=== PATIENT | male | born 1990 | race Caucasian/White ===

== ENCOUNTER 2021-02-23 16:42 | Day surgery (SDCO) | payer OTHER ==
[~2021-02-23 16:42] MED LIST: CEFDINIR300 MG PO; DIFLUCAN 100MG100 MG PO; DITROPAN5 MG PO; GLUCOPHAGE850 MG PO; LIPITOR 10MG TA10 MG PO; METFORMIN HCL500 MG PO; SINGULAIR10 MG PO; VENTOLIN HFA18 GM INH; XYZAL5 MG PO
[2021-02-23 17:59] LABS: BASOPHIL 0.5 % (0-2); EOSINOPHIL 0.6 % (0-5); HCT 49.4 % (42.0-52.0); HGB 16.4 g/dl (13.2-18.0); LYMPHOCYTE 11.7 % (15-48); MCH 27.4 pg (25.0-31.0); MCHC 33.2 g/dL (32.0-36.0); MCV 82.6 fL (78.0-100.0); MPV 10.3 fL (6.0-9.5); NEUTROPHIL 78.6 % (41-80); NRBC 0; PLT 343 K/uL (150-400); RBC 5.98 M/uL (4.70-6.00); RDW 14.1 % (11.5-14.0); WBC 18.6 K/uL (4.0-10.5)
[2021-02-23 18:21] LABS: ALBUMIN 4.3 g/dL (3.4-5.0); BILIRUBIN - TOTAL 1.1 mg/dL (0.2-1.0); CREATININE 0.81 mg/dL (0.67-1.17); GLOBULIN (CALCULATION) 3.9 g/dL; POTASSIUM 4.1 mmol/L (3.5-5.1); TOTAL PROTEIN 8.2 g/dL (6.4-8.2)
[2021-02-23 18:30] LABS: LACTIC ACID 2.5 mmol/L (0.4-1.9)
[2021-02-23 20:09] LABS: BILIRUBIN NEGATIVE (NEGATIVE); BLOOD NEGATIVE Ery/uL (NEGATIVE); CLARITY CLEAR (CLEAR); COLOR YELLOW (YELLOW); GLUCOSE (U) NORMAL (NORMAL); LEUKOCYTES NEGATIVE Leu/uL (NEGATIVE); NITRITE NEGATIVE (NEGATIVE); PROTEIN TRACE (LOW) mg/dL (NEGATIVE); SPECIFIC GRAVITY 1.015 (1.001-1.030); UROBILINOGEN 0.2 mg/dL (0.2-1.0)
[2021-02-23 20:14] LABS: BACTERIA 1+
[2021-02-24] MEDS ORDERED: BUSPAR5 MG PO (03:16)
[2021-02-24] MEDS ORDERED: LIPITOR 10MG TA10 MG PO (03:16)
[2021-02-24] MEDS ORDERED: SINGULAIR10 MG PO (03:17)
[2021-02-24] MEDS ORDERED: METFORMIN HCL500 MG PO (03:17)
[2021-02-24] MEDS ORDERED: LEXAPRO5 MG PO (03:18)
[2021-02-24 07:19] LABS: BASOPHIL 0.5 % (0-2); EOSINOPHIL 3.5 % (0-5); HCT 42.4 % (42.0-52.0); HGB 13.8 g/dl (13.2-18.0); MCH 27.7 pg (25.0-31.0); MCHC 32.5 g/dL (32.0-36.0); MCV 85.1 fL (78.0-100.0); MONOCYTE 8.1 % (0-12); MPV 10.6 fL (6.0-9.5); NEUTROPHIL 65.2 % (41-80); NRBC 0; PLT 213 K/uL (150-400); RBC 4.98 M/uL (4.70-6.00); RDW 14.4 % (11.5-14.0); WBC 9.8 K/uL (4.0-10.5)
[2021-02-24 07:50] LABS: ALBUMIN 3.3 g/dL (3.4-5.0); BILIRUBIN - TOTAL 0.9 mg/dL (0.2-1.0); CREATININE 0.75 mg/dL (0.67-1.17); GLOBULIN (CALCULATION) 3.5 g/dL; POTASSIUM 3.9 mmol/L (3.5-5.1); TOTAL PROTEIN 6.8 g/dL (6.4-8.2)
[2021-02-24] MEDS ORDERED: HCTZ12.5 MG PO (10:23)
[2021-02-24] MEDS ORDERED: METRONIDAZOLE500 MG PO (15:01)
[2021-02-24] MEDS ORDERED: DIFLUCAN150 MG PO (15:01)
[2021-02-24] MEDS ORDERED: IMODIUM2 MG PO (15:03)
--- NOTE | 2021-02-24 16:29 | NUR ---
MET WITH PT. REGADING HIS NEEDS. HE STATES THAT HE IS DISCHARGING HOME THIS DATE. HE STATES THAT HE HAS HOME CARE ASSISTANCE WITH A [employer], SOMEONE TO COOK FOR HIM. HE IS GETTING RAMPS INSTALLED AT HIS HOME. HE DOES NOT HAVE ANY NEEDS. HIS MOTHER WILL TRANSPORT HIM HOME.
== END 2021-02-24 17:37 | disposition home or self-care (01) ==
LOC: FER 16:42 → FMS 02-24 01:13
PROVIDERS: Emergency Medicine; Nurse Practitioner; ADMIT Internal Medicine
DX: K52.9 Noninfective gastroenteritis and colitis, unspecified (principal); E86.0 Dehydration; K76.0 Fatty (change of) liver, not elsewhere classified; E11.9 Type 2 diabetes mellitus without complications; E78.5 Hyperlipidemia, unspecified; I10 Essential (primary) hypertension; Z79.84 Long term (current) use of oral hypoglycemic drugs; Z79.899 Other long term (current) drug therapy; Z20.822 Contact with and (suspected) exposure to COVID-19
CPT/HCPCS: 36415; 80053; 81001; 83605; 83690; 84145; 85025; 87040; 87088; 93005; G0378; J1885; J2405; J2543; J7030; Q9967; U0002